=== PATIENT | male | born 1985 | race Hispanic/Latino ===

== ENCOUNTER 2021-03-09 11:38 | Emergency (ER) | payer MEDICAID, OTHER ==
[~2021-03-09] VITALS: Ht 175.3 cm; Wt 90.7 kg
[2021-03-09] MEDS ORDERED: ONDANSETRON 4MG INJ IVP SCH (12:00)
[2021-03-09] MEDS ORDERED: MORPHINE 2 MG SYG IVP SCH (12:00)
[2021-03-09 12:11] LABS: BASOPHILS % (AUTO) 0.3 % (0.0-5.0); EOSINOPHILS % (AUTO) 1.1 % (0.0-8.0); HEMATOCRIT 45.8 % (42-54); LYMPHOCYTES % (AUTO) 15.5 % (21.0-51.0); MEAN CORPUSCULAR HEMOGLOBIN 27.2 pg (27.0-33.0); MEAN CORPUSCULAR HGB CONC 32.8 g/dL (32.0-36.0); MONOCYTES % (AUTO) 10.4 % (3.0-13.0); NEUTROPHILS % (AUTO) 72.5 % (40.0-77.0); PLATELET COUNT (AUTO) 383 K/uL (130-400); RED BLOOD CELL COUNT(AUTO) 5.52 MIL/uL (4.50-6.20); RED CELL DISTRIBUTION WIDTH 13.7 % (11.0-15.5); WHITE BLOOD COUNT (AUTO) 12.8 K/uL (4.8-10.8)
[2021-03-09 12:22] LABS: ALBUMIN 3.8 g/dL (3.5-5.0); BILIRUBIN,TOTAL 0.6 mg/dL (0.2-1.0); TOTAL PROTEIN, SERUM 7.9 g/dL (6.0-8.3)
[2021-03-09 13:11] LABS: APPEARANCE,URINE Clear (CLEAR); BILIRUBIN,URINE Negative (NEGATIVE); COLOR,URINE Yellow (YELLOW); GLUCOSE, URINE (UA) Negative (NEGATIVE); KETONES,URINE Negative (NEGATIVE); LEUKOCYTE ESTERASE ,URINE Negative (NEGATIVE); NITRATE,URINE Negative (NEGATIVE); OCCULT BLOOD,URINE Negative (NEGATIVE); PH,URINE 5.5 (5.0-8.0); PROTEIN,URINE Negative (NEGATIVE)
[2021-03-09] MEDS ORDERED: METRONIDAZOLE 500 MG TABLET PO SCH ×2 (13:30→15:00)
[2021-03-09] MEDS ORDERED: METR375C2 PO (13:49)
[2021-03-09] MEDS ORDERED: ONDA4TAB10 PO (13:49)
[2021-03-09] MEDS ORDERED: CIPR-278 PO (13:49)
[2021-03-09] MEDS ORDERED: LEVOFLOXACIN 500 MG TABLET PO SCH ×2 (14:00→15:00)
[2021-03-09] MEDS ORDERED: METRONIDAZOLE 500 MG TABLET ONE (14:00)
[2021-03-09] MEDS ORDERED: LEVOFLOXACIN 500 MG TABLET ONE (14:01)
[2021-03-09 14:02] VITALS: BP 118/77
[2021-03-10] MEDS ORDERED: ACET1TAB25 PO (08:09)
[2021-03-10] MEDS ORDERED: DICY20TA2 PO (08:09)
[2021-03-10] MEDS ORDERED: AMOX-429 PO (08:09)
== END 2021-03-09 14:05 | disposition home or self-care (01) ==
LOC: EDH 11:38
DX: K57.32 Diverticulitis of large intestine without perforation or abscess without bleeding (principal); D72.829 Elevated white blood cell count, unspecified; Z79.899 Other long term (current) drug therapy
CPT/HCPCS: 36415; 71045; 74176; 80053; 81003; 83690; 85025; 86140; 96374; 96375; 99285; J2405

== ENCOUNTER 2021-03-10 06:36 | Emergency (ER) | payer SELFPAY ==
[~2021-03-10] VITALS: Ht 175.3 cm; Wt 90.7 kg
[~2021-03-10 06:36] MED LIST: CIPR-278 PO; METR375C2 PO; ONDA4TAB10 PO
[2021-03-10] MEDS ORDERED: MORPHINE 4 MG SYG IM SCH (08:00)
[2021-03-10] MEDS ORDERED: ACET1TAB25 PO (08:09)
[2021-03-10] MEDS ORDERED: AMOX-429 PO (08:09)
[2021-03-10] MEDS ORDERED: DICY20TA2 PO (08:09)
[2021-03-10 08:21] VITALS: BP 139/86
== END 2021-03-10 08:29 | disposition home or self-care (01) ==
LOC: EDH 06:36
DX: K57.32 Diverticulitis of large intestine without perforation or abscess without bleeding (principal); Z79.899 Other long term (current) drug therapy
CPT/HCPCS: 96372; 99283; J2270